=== PATIENT | female | born 1955 | race Caucasian/White ===

== ENCOUNTER 2017-02-16 17:20 | Emergency (ER) | payer BC ==
--- NOTE | ~2017-02-16 | EKG ---
PATIENT: VELVET GOMEZ UNIT #: [id number] Ventricular Rate: 112 BPM Atrial Rate: 112 BPM P-R Interval: 152 ms QRS Duration: 86 ms Q-T Interval: 324 ms QTC Calculation(Bezet): 442 ms P [place]: 82 degrees Calculated R [place]: 75 degrees Calculated T [place]: 56 degrees Diagnosis Line: Sinus tachycardia Diagnosis Line: Possible Left atrial enlargement Diagnosis Line: Low voltage QRS Diagnosis Line: Poor R wave progression questionable lead position Diagnosis Line: or body habitus Diagnosis Line: Abnormal ECG Diagnosis Line: No previous ECGs available Diagnosis Line: Confirmed by BERNADINE PRUITT MD ([id number]) on Diagnosis Line: 02/26/2017 7:14:57 AM INTERPRETING MD: BRI
--- NOTE | ~2017-02-16 | CR72 ---
[facility] A Service of [facility] & [facility] RADIOLOGY TEXT RESULTS PATIENT: VELVET GOMEZ LOCATION: SED : 57 UNIT #: [id number] AGE: [address]: Loyd Tripp MD SEX: F ORDER DR: [id number] [address] [address] [id number] MR#: [id number] Acc #: [id number] NAME: VELVET GOMEZ : 1955 SEX: F STUDY DATE/TIME: 02/16/2017 17:37 UNIT: SED ROOM: STUDY DESCRIPTION: CR Chest Single View Portable Attending Physician: Loyd Tripp M.D. Ordering Physician: Elias Mathew M.D. Primary Care Physician: Henrry Thomson M.D. MEDICAL IMAGING REPORT This report is preliminary unless electronic signature is present. EXAM Frontal chest, 02/16/2017 INDICATIONS 61-year-old female with chest pain, pain with deep breath. Symptoms a few hours. No history of tobacco abuse. TECHNIQUE Frontal chest compared with 10/20/2015. FINDINGS Cardiac silhouette is within normal limits. The vascularity is unremarkable. The lungs demonstrate COPD. There is probable scarring in the lung bases. No effusion, dense consolidation or pneumothorax. IMPRESSION 1. Chronic-appearing lung changes. No definite superimposed active disease. Dictated by... Shaheed Arzate M.D. THIS IS AN ELECTRONICALLY VERIFIED REPORT Shaheed Arzate M.D. at 02/16/2017 10:56 PM ROSAMARIA/robert TD: 02/16/2017 22:40 JOB #: [id number] MEDICAL IMAGING REPORT Page 1 of 1
[~2017-02-16 17:20] MED LIST: NO MEDICATIONS
[2017-02-16 17:56] LABS: BASOPHIL# 0.1 X10e3 (0-0.3); BASOPHIL% 1.3 % (0-2.5); EOSINOPHIL# 0.6 X10e3 (0-0.7); EOSINOPHIL% 11.1 % (0.0-7.0); HEMATOCRIT 44.2 % (35.0-45.0); HEMOGLOBIN 14.9 gm/dL (12.0-16.0); MEAN CELL VOLUME 88.5 FL (83-96); MEAN CORPUSCULAR HEMOGLOBIN 29.9 PG (28-34); MEAN CORPUSCULAR HGB CONC 33.8 g/dL (30-36); MONOCYTE# 0.5 X10e3 (0-1.0); MONOCYTE% 8.4 % (3.0-12.0); NEUTROPHIL# 2.6 X10e3 (1.5-7.1); NEUTROPHIL% 45.2 % (40-75); PLATELET COUNT 259 X10e3 (140-420); RED BLOOD COUNT 4.99 X10e (3.90-5.30); RED CELL DISTRIBUTION WIDTH 13.4 % (11.0-15.5); WHITE BLOOD COUNT 5.8 X10e3 (4.0-10.5)
[2017-02-16 18:03] LABS: DIFF IND NO
[2017-02-16 18:06] LABS: INR 1.1; PROTHROMBIN TIME (PATIENT) 12.2 SECONDS (9.5-12.4)
[2017-02-16 18:12] LABS: POC - CKMB <1.0 ng/mL (0.0-7.9); POC - MYOGLOBIN 55.5 ng/mL (0.0-169.0); POC - TROPONIN <0.05 ng/mL (<=0.05)
[2017-02-16 18:13] LABS: PARTIAL THROMBOPLASTIN TIME 25.1 SECONDS (25.6-38.1)
[2017-02-16 18:15] LABS: ALBUMIN SERUM 3.8 g/dL (3.5-5.0); BILIRUBIN, DIRECT 0.1 mg/dL (0.0-0.2); BILIRUBIN,INDIRECT 0.3 mg/dL (0.0-0.9); BILIRUBIN,TOTAL 0.4 mg/dL (0.2-2.0); BUN/CREATININE RATIO 18.75; CALCIUM SERUM 8.5 mg/dL (8.4-10.2); CREATININE SERUM 0.8 mg/dL (0.6-1.4); GLOM FILT RATE Estimated 80.2 mL/min (>60); POTASSIUM 4.1 mmol/L (3.5-5.1); PROTEIN TOTAL SERUM 6.7 g/dL (6.0-8.3)
[2017-02-16 19:47] LABS: POC - CKMB <1.0 ng/mL (0.0-7.9); POC - MYOGLOBIN 47.2 ng/mL (0.0-169.0); POC - TROPONIN <0.05 ng/mL (<=0.05)
== END 2017-02-16 21:28 ==
LOC: SED 17:20
PROVIDERS: Emergency Medicine
DX: J44.9 Chronic obstructive pulmonary disease, unspecified (principal); Z90.710 Acquired absence of both cervix and uterus; F17.210 Nicotine dependence, cigarettes, uncomplicated
CPT/HCPCS: 71010; 80048; 80076; 82553; 83874; 84484; 85025; 85379; 85610; 85730; 93005; 94640; 99284; 99285